=== PATIENT | male | born 1945 | race Hispanic/Latino ===

== ENCOUNTER → 2018-09-04 | Outpatient (CLI) | payer MEDICARE | END | disposition home or self-care (01) | LOC: RAH 08:12 | PROVIDERS: ATTEND Family Medicine | DX: I25.10 Atherosclerotic heart disease of native coronary artery without angina pectoris (principal); K44.9 Diaphragmatic hernia without obstruction or gangrene | CPT/HCPCS: 74150 ==

== ENCOUNTER → 2018-09-27 | Outpatient (CLI) | payer MEDICARE ==
[~2018-09-27] VITALS: Ht 152.4 cm; Wt 94.3 kg
[~2018-09-27] MED LIST: REGADENOSON 0.4 MG/5 ML PF SYG IVP SCH
== END | disposition home or self-care (01) ==
LOC: SHCH 09:09
PROVIDERS: ATTEND Internal Medicine Cardiovascular Disease
DX: I25.10 Atherosclerotic heart disease of native coronary artery without angina pectoris (principal)
CPT/HCPCS: 78452; A9500 ×2; J2785

== ENCOUNTER 2018-10-25 12:15 | Observation (INO) | payer MEDICARE ==
[~2018-10-25] VITALS: Ht 170.2 cm; Wt 92.5 kg
[2018-10-25 13:14] VITALS: BP 132/77
[2018-10-25 13:21] LABS: BASOPHILS % (AUTO) 1.2 % (0.0-5.0); HEMATOCRIT 41.2 % (42-54); LYMPHOCYTES % (AUTO) 18.4 % (21.0-51.0); MEAN CORPUSCULAR HEMOGLOBIN 27.5 pg (27.0-33.0); MEAN CORPUSCULAR VOLUME 83.2 fL (79-99); NEUTROPHILS % (AUTO) 70.4 % (40.0-77.0); PLATELET COUNT (AUTO) 227 K/uL (130-400); RED BLOOD CELL COUNT(AUTO) 4.96 MIL/uL (4.50-6.20); RED CELL DISTRIBUTION WIDTH 14.3 % (11.0-15.5); WHITE BLOOD COUNT (AUTO) 6.9 K/uL (4.8-10.8)
[2018-10-25 13:28] LABS: CREATININE 1.4 mg/dL (0.5-1.5); POTASSIUM 4.2 mmol/L (3.5-5.1)
[2018-10-25] MEDS ORDERED: PRAV20TA4 PO (13:30)
[2018-10-25] MEDS ORDERED: OMEP20TA25 PO (13:30)
[2018-10-25] MEDS ORDERED: LEVO25TA54 PO (13:30)
[2018-10-25] MEDS ORDERED: INSU100V12 SQ (13:30)
[2018-10-25] MEDS ORDERED: GABA-529 PO (13:30)
[2018-10-25] MEDS ORDERED: ASPI-1181 PO (13:30)
[2018-10-26] VITALS (25 sets, daily range): BP systolic 122–174; BP diastolic 54–96
[2018-10-26] MEDS ORDERED: SODIUM CHLORIDE 0.9% 1000ML 1,000 ML IV ONE (12:06)
[2018-10-26] MEDS ORDERED: LIDOCAINE PF 2% 5ML ABBOJECT ONE (13:03)
[2018-10-26] MEDS ORDERED: SUCCINYLCHOLINE CHLORIDE 20 MG/ML 10 ML VIAL ONE (13:03)
[2018-10-26] MEDS ORDERED: PROPOFOL 10 MG/ML 20ML VIAL IV ONE (13:03)
[2018-10-26] MEDS ORDERED: ROCURONIUM 10MG/1ML SYR 10 MG/ML ML ONE (13:03)
[2018-10-26] MEDS ORDERED: FENTANYL CITRATE PF 50 MCG/1 ML 2ML VIAL ONE (13:04)
[2018-10-26] MEDS ORDERED: BUPIVACAINE/PF 0.5% 30ML VIAL ONE (13:14)
[2018-10-26] MEDS ORDERED: EPHEDRINE SULFATE 50 MG/ML AMPULE ONE (13:25)
[2018-10-26] MEDS ORDERED: CEFAZOLIN SODIUM 1 GM VIAL ONE ×2 (13:34→13:36)
[2018-10-26] MEDS ORDERED: NEOSTIGMINE 5MG/5ML SYR IV ONE (13:47)
[2018-10-26] MEDS ORDERED: GLYCOPYRROLATE 1 MG/5 ML SYRINGE ONE (13:47)
[2018-10-26] MEDS ORDERED: IPRATROPIUM/ALBUTEROL SULFATE 3 ML SOLUTION IH ONE (14:14)
[2018-10-26] MEDS: LEVOFLOXACIN 500 MG/D5W 100 ML 100 ML IV SCH (16:46)
[2018-10-26] MEDS: IPRATROPIUM/ALBUTEROL SULFATE 3 ML SOLUTION IH SCH ×2 (17:20→19:41)
[2018-10-26] MEDS ORDERED: DEXTROSE 50%-WATER 50 ML DISP.SYRIN IV PRN (17:30)
[2018-10-26] MEDS ORDERED: GLUCAGON 1MG KIT 1 MG ML IM PRN (17:30)
[2018-10-26] MEDS: GABAPENTIN 100 MG CAPSULE PO SCH (20:49)
[2018-10-26] MEDS: INSULIN HUMULIN R 100 UNIT/ML 3ML SQ SCH (20:50)
[2018-10-26] MEDS ORDERED: GUAIFENESIN SUGAR-FREE 100 MG/5 ML UDCUP PO PRN (22:45)
[2018-10-27] MEDS: IPRATROPIUM/ALBUTEROL SULFATE 3 ML SOLUTION IH SCH ×3 (00:16→11:01)
[2018-10-27 04:00] VITALS: BP 121/58
[2018-10-27 05:12] LABS: MEAN CORPUSCULAR HEMOGLOBIN 27.6 pg (27.0-33.0); MEAN CORPUSCULAR HGB CONC 33.6 g/dL (32.0-36.0); MEAN CORPUSCULAR VOLUME 82.3 fL (79-99); PLATELET COUNT (AUTO) 197 K/uL (130-400); RED BLOOD CELL COUNT(AUTO) 4.62 MIL/uL (4.50-6.20); RED CELL DISTRIBUTION WIDTH 13.5 % (11.0-15.5); WHITE BLOOD COUNT (AUTO) 5.9 K/uL (4.8-10.8)
[2018-10-27 05:18] LABS: CREATININE 1.2 mg/dL (0.5-1.5)
[2018-10-27 05:27] LABS: BAND NEUTROPHILS % (MANUAL) 8 % (0-2); BASOPHILS % (MANUAL) 2 % (0-2); EOSINOPHILS % (MANUAL) 3 % (1-6); LYMPHOCYTES % (MANUAL) 17 % (22-44); MAN.DIFF COMMENT-IMPRESSION MANUAL DIFFERENTIAL; MONOCYTES % (MANUAL) 7 % (2-9); PLATELET MORPHOLOGY COMMENT ADEQUATE; REACTIVE LYMPHOCYTES 2 % (0-0); SEGMENTED NEUTROPHILS % 61 % (40-70)
[2018-10-27] MEDS ORDERED: LEVOTHYROXINE 25 MCG TABLET PO SCH (06:30)
[2018-10-27] MEDS: INSULIN HUMULIN R 100 UNIT/ML 3ML SQ SCH ×3 (06:34→16:29)
[2018-10-27 08:00] VITALS: BP 141/86
[2018-10-27] MEDS: GABAPENTIN 100 MG CAPSULE PO SCH ×2 (08:32→13:57)
[2018-10-27] MEDS ORDERED: ASPIRIN 81MG TAB.CHEW PO SCH (09:00)
[2018-10-27] MEDS ORDERED: PANTOPRAZOLE SODIUM 40 MG TABLET.DR PO SCH (09:00)
[2018-10-27] MEDS ORDERED: INSULIN GLARGINE 100 UNITS/ML 10 ML VIAL SQ SCH (09:00)
[2018-10-27] MEDS ORDERED: ATORVASTATIN CALCIUM 10 MG TABLET PO SCH (09:00)
[2018-10-27 11:00] VITALS: BP 122/62
[2018-10-27 16:00] VITALS: BP 143/86
[2018-10-27] MEDS: LEVOFLOXACIN 500 MG/D5W 100 ML 100 ML IV SCH (16:29)
== END 2018-10-27 17:45 | disposition home or self-care (01) ==
LOC: EDSTATUS 12:15 → DAHIP 10-26 11:23 → 4BH 10-26 17:17
PROVIDERS: ADMIT Surgery; ATTEND Surgery
DX: K80.00 Calculus of gallbladder with acute cholecystitis without obstruction (principal); E11.319 Type 2 diabetes mellitus with unspecified diabetic retinopathy without macular edema; E11.40 Type 2 diabetes mellitus with diabetic neuropathy, unspecified; E11.39 Type 2 diabetes mellitus with other diabetic ophthalmic complication; H42 Glaucoma in diseases classified elsewhere; E53.8 Deficiency of other specified B group vitamins; E78.5 Hyperlipidemia, unspecified; H10.9 Unspecified conjunctivitis; I10 Essential (primary) hypertension; I25.10 Atherosclerotic heart disease of native coronary artery without angina pectoris; J20.9 Acute bronchitis, unspecified; K82.8 Other specified diseases of gallbladder; R09.02 Hypoxemia; Z90.49 Acquired absence of other specified parts of digestive tract
CPT/HCPCS: 36415; 71046; 80048; 82948; 85025; 88304; 93005; 94640; 94664; 96365; 96366; 96372; G0378; J0330; J0690; J1815; J1956; J2001; J2704; J2710; J3010; J3490; J7030